=== PATIENT | male | born 1975 | race African-American/Black ===

== ENCOUNTER 2017-01-27 18:27 | Emergency (ER) | payer SELFPAY ==
[~2017-01-27] VITALS: Ht 190.5 cm; Wt 85.0 kg
[2017-01-27] MEDS ORDERED: IBUPROFEN 600MG TABLET PO ONE (20:00)
[2017-01-27 21:39] VITALS: BP 141/74
== END 2017-01-27 22:29 | disposition home or self-care (01) ==
LOC: ER 22:00
DX: M79.671 Pain in right foot (principal); S91.301A Unspecified open wound, right foot, initial encounter; X95.8XXA Assault by other firearm discharge, initial encounter; Y93.89 Activity, other specified; Y92.89 Other specified places as the place of occurrence of the external cause; F17.210 Nicotine dependence, cigarettes, uncomplicated; F12.10 Cannabis abuse, uncomplicated; F10.10 Alcohol abuse, uncomplicated
CPT/HCPCS: 99283